=== PATIENT | male | born 1950 | race Caucasian/White ===

== ENCOUNTER 2024-07-07 18:51 | Emergency (ER) | payer MEDICAID ==
[~2024-07-07] VITALS: Ht 162.6 cm; Wt 94.3 kg
[2024-07-07 18:57] VITALS: TEMP 98.2; O2SAT 97
[2024-07-07 21:07] LABS: BASOPHILS % 0.5 % (0.0-2.0); DIFFERENTIAL COMMENT 0; EOSINOPHILS % 2.2 % (0.0-5.0); HEMOGLOBIN. 13.1 g/dL (14.0-18.0); LYMPHOCYTES % 34.5 % (20.0-50.0); MEAN CORPUSCULAR HEMOGLOBIN 34.6 pg (28.0-32.0); MEAN CORPUSCULAR HGB CONC 34.5 g/dL (31.0-37.0); MEAN CORPUSCULAR VOLUME 100.2 fL (80.0-94.0); MEAN PLATELET VOLUME 7.4 fl (7.4-10.4); MONOCYTES % 11.3 % (2.0-8.0); NEUTROPHILS % 51.5 % (40.0-76.0); PLATELET 421 x1000/uL (130-400); RED CELL DISTRIBUTION WIDTH 15.4 % (11.6-14.6); WHITE BLOOD COUNT 6.5 x1000/uL (4.5-11.0)
[2024-07-07 21:11] LABS: CHLORIDE 105 mEq/L (98-107); SODIUM 139 mEq/L (136-145)
[2024-07-07 21:12] LABS: CARBON DIOXIDE 28 mEq/L (21-32)
[2024-07-07 21:13] LABS: CALCIUM 9.5 mg/dL (8.7-10.4)
[2024-07-07 21:17] LABS: CREATININE 1.2 mg/dL (0.6-1.3); GLUCOSE 181 mg/dL (70-105)
[2024-07-07 21:18] LABS: UREA NITROGEN BLOOD 14 mg/dL (9-23)
[2024-07-07 21:19] LABS: ALANINE AMINOTRANSFERASE 29 IU/L (10-49); ALBUMIN 4.4 g/dL (3.2-4.8); ASPARTATE AMINOTRANSFERASE 29 IU/L (<34)
[2024-07-07 21:20] LABS: BILIRUBIN TOTAL 0.4 mg/dL (0.1-1.0)
[2024-07-07 21:27] LABS: BILIRUBIN DIRECT < 0.1 mg/dL (<=3.0); TROPONIN I HIGH SENSITIVITY < 4 ng/L (3.0-53)
[2024-07-07] MEDS ORDERED: IBUP-2029 MT (22:09)
[2024-07-07 23:34] VITALS: BP 133/81; PULSE 92; RESP 18
[2024-07-07] MEDS: IBUPROFEN 800MG TABLET PO ONE (23:34)
== END 2024-07-07 23:35 | disposition home or self-care (01) ==
LOC: ER 18:51
DX: R60.0 Localized edema (principal); I10 Essential (primary) hypertension
CPT/HCPCS: 36415; 71045; 80048; 80076; 83880; 84484; 85025; 93005; 93970; 99285